=== PATIENT | female | born 1990 ===

== ENCOUNTER 2017-05-06 15:08 | Observation (INO) | payer OTHER ==
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
[2017-05-06] MEDS: Sodium Chloride 0.9% 1,000 ML IV STA ×2 (15:54→17:57)
[2017-05-06 16:11] LABS: BASO # 0.1 K/uL (0.0-0.2); BASO % 0.4 % (0.0-2.0); EOS % 0.1 % (0.0-4.0); HEMOGLOBIN 12.8 g/dL (12.0-16.0); LYMPH # 1.5 K/uL (1.0-4.3); LYMPH % 9.9 % (20.0-40.0); MEAN CELL VOLUME 84.6 fl (81.0-99.0); MEAN CORPUSCULAR HEMOGLOBIN 29.2 pg (27.0-31.0); MEAN CORPUSCULAR HGB CONC 34.5 g/dL (33.0-37.0); MEAN PLATELET VOLUME 7.6 fl (7.2-11.7); MONO # 0.7 K/uL (0.0-0.8); NEUT # 12.6 K/uL (1.8-7.0); NEUT % 84.6 % (50.0-75.0); NRBC % 0.1 % (0.0-0.0); PLATELET COUNT 203 K/uL (130-400); RBC 4.41 Mil/uL (3.80-5.20); RED CELL DISTRIBUTION WIDTH 12.5 % (11.5-14.5); WHITE BLOOD COUNT 14.9 K/uL (4.8-10.8)
[2017-05-06 16:13] LABS: ALBUMIN 3.9 g/dL (3.5-5.0); ALT/SGPT 20 U/L (9-52); AST/SGOT 23 U/L (14-36); BLOOD UREA NITROGEN 5 mg/dl (7-17); GFR AFRICAN-AMERICAN > 60; GFR NON-AFRICAN AMERICAN > 60
[2017-05-06 16:15] LABS: VENOUS BLOOD GAS BASE EXCESS 3.6 mmol/L (0.0-2.0); VENOUS BLOOD GAS PCO2 26 mmHg (40-60); VENOUS BLOOD GAS PO2 34 mm/Hg (30-55); VENOUS BLOOD PH 7.58 (7.32-7.43)
--- NOTE | 2017-05-06 16:18 | RAD ---
HISTORY: fever COMPARISON: No prior. TECHNIQUE: Chest PA and lateral FINDINGS: LUNGS: No active pulmonary disease. PLEURA: No significant pleural effusion identified. No pneumothorax apparent. CARDIOVASCULAR: Normal. OSSEOUS STRUCTURES: No significant abnormalities. VISUALIZED UPPER ABDOMEN: Normal. OTHER FINDINGS: None. IMPRESSION: No active disease.
[2017-05-06] MEDS ORDERED: Potassium Chloride 20 mEq ER Tab PO ONE ×2 (16:25→17:52)
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
[2017-05-06 16:54] LABS: BANDS 2 % (0-2); BASOPHIL 1 % (0-2); LYMPHOCYTE 7 % (20-50); MONOCYTE 4 % (0-10); NEUTROPHIL 81 % (42-75); PLATELET ESTIMATE NORMAL (NORMAL); REACTIVE LYMPHOCYTES 5 % (0-0); TOTAL CELLS COUNTED 100
[2017-05-06 16:55] LABS: HYPOCHROMIC SLIGHT; STOMATOCYTES SLIGHT
[2017-05-06] MEDS ORDERED: cefTRIAXone 2 GM in Sodium Chloride 0.9% 100 ML IVPB STA ×2 (17:16→17:17)
[2017-05-06] MEDS ORDERED: Dexamethasone 10 MG in Sodium Chloride 0.9% 50 ML IVPB STA (17:16)
[2017-05-06] MEDS ORDERED: Vancomycin 2 GM in Sodium Chloride 0.9% 500 ML IVPB STA (17:17)
[2017-05-06] MEDS ORDERED: Dexamethasone 10 MG in Sodium Chloride 0.9% 50 ML IV STA (17:17)
[2017-05-06] MEDS ORDERED: Sodium Chloride 0.9% 1,000 ML IV STA (17:19)
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
[2017-05-06 17:47] LABS: INR 1.1 (0.9-1.2); PROTHROMBIN TIME 12.2 Seconds (9.8-13.1)
[2017-05-06 18:12] LABS: VENOUS BLOOD GAS BASE EXCESS 0.7 mmol/L (0.0-2.0); VENOUS BLOOD GAS PCO2 35 mmHg (40-60); VENOUS BLOOD GAS PO2 63 mm/Hg (30-55); VENOUS BLOOD PH 7.45 (7.32-7.43)
[2017-05-06 18:30] LABS: FLUID TYPE SPINAL FLUID
[2017-05-06 18:32] LABS: CSF VOLUME 2 mL (0-1)
[2017-05-06 18:33] LABS: CSF APPEARANCE CLEAR/COLORLESS (CLEAR)
[2017-05-06 18:41] LABS: CSF MONO/MACROPHAGE 0 % (0-0)
[2017-05-07 05:18] VITALS: RESP 18
[2017-05-07] MEDS ORDERED: Influenza Vaccine 18yr & older 0.5 ML/45 MCG SYR IM ONE (06:00)
[2017-05-07 08:05] LABS: HEMOGLOBIN 12.3 g/dL (12.0-16.0); MEAN CELL VOLUME 85.6 fl (81.0-99.0); MEAN CORPUSCULAR HEMOGLOBIN 29.6 pg (27.0-31.0); MEAN CORPUSCULAR HGB CONC 34.6 g/dL (33.0-37.0); RBC 4.15 Mil/uL (3.80-5.20); RED CELL DISTRIBUTION WIDTH 12.7 % (11.5-14.5); WHITE BLOOD COUNT 10.5 K/uL (4.8-10.8)
[2017-05-07 08:06] LABS: BLOOD UREA NITROGEN 5 mg/dl (7-17); CALCIUM 8.9 mg/dL (8.4-10.2); GFR AFRICAN-AMERICAN > 60; GFR NON-AFRICAN AMERICAN > 60
[2017-05-07] MEDS: Insulin Lispro (humaLOG) 100 Units/ml Inj SC SCH ×2 (08:59→11:47)
[2017-05-07] MEDS: cefTRIAXone 2 GM in Sodium Chloride 0.9% 100 ML IVPB SCH ×2 (11:21→20:00)
[2017-05-07 12:27] LABS: SQUAMOUS EPITHIAL 16 /hpf (0-5); URINE BACTERIA RARE (<OCC); URINE BILIRUBIN NEGATIVE (NEGATIVE); URINE BLOOD NEGATIVE (NEGATIVE); URINE CLARITY CLOUDY (Clear); URINE GLUCOSE (UA) NEG (Normal); URINE LEUKOCYTE ESTERASE SMALL Leu/uL (Negative); URINE PROTEIN 30 mg/dL (NEGATIVE)
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
[2017-05-07 12:35] LABS: URINE COLOR YELLOW (YELLOW)
--- NOTE | 2017-05-07 13:09 | CP.PCM.CON ---
History of Present Illness - History of Present Illness History of Present Illness: 27 year old female presented to the ED with a several day history of moderate to severe headache associated with nausea and vomiting twice daily in the morning and evenings. She is s/p head trauma 3 days ago for which she went to [facility], was discharged with antibiotics for UTI and fioricet. Febrile 102.4, WBC 14K, LA 3.1 , LP results so far negative and fever resolving on IV antibiotics PMSH: denies FH: denies SH: denies tobacco etoh ivdu Meds: denies NKDA Review of Systems - Constitutional Constitutional: As Per HPI - EENT Eyes: absent: As Per HPI, Blind Spots, Blurred Vision, Change in Vision, Decreased Night Vision, Diplopia, Discharge, Dry Eye, Exophthalmos, Floaters, Irritation, Itchy Eyes, Loss of Peripheral Vision, Pain, Photophobia, Requires Corrective Lenses, Sees Flashes, Spots in Vision, Tunnel Vision, Other Visual Disturbances, Loss of Vision, Other Ears: absent: As Per HPI, Decreased Hearing, Ear Discharge, Ear Pain, Tinnitus, Abnormal Hearing, Disequilibrium, Dizziness, Other Nose/Mouth/Throat: absent: As Per HPI, Epistaxis, Nasal Congestion, Nasal Discharge, Nasal Obstruction, Nasal Trauma, Nose Pain, Post Nasal Drip, Sinus Pain, Sinus Pressure, Bleeding Gums, Change in Voice, Dental Pain, Dry Mouth, Dysphagia, Halitosis, Hoarsness, Lip Swelling, Mouth Lesions, Mouth Pain, Odynophagia, Sore Throat, Throat Swelling, Tongue Swelling, Facial Pain, Neck Pain, Neck Mass, Other - Breasts Breasts: absent: As Per HPI, Change in Shape, Mass, Pain, Nipple Discharge, Nipple Inversion, Skin Changes, Swelling, Other - Cardiovascular Cardiovascular: absent: As Per HPI, Acrocyanosis, Chest Pain, Chest Pain at Rest , Chest Pain with Activity, Claudication, Diaphoresis, Dyspnea, Dyspnea on Exertion, Edema, Irregular Heart Rhythm, Pain Radiating to Arm/Neck/Jaw, Leg Edema, Leg Ulcers, Lightheadedness, Orthopnea, Palpitations, Paroxysmal Nocturnal Dyspnea, Pedal Edema, Radiating Pain, Rapid Heart Rate, Slow Heart Rate, Syncope, Other - Respiratory Respiratory: absent: As Per HPI, Cough, Dyspnea, Hemoptysis, Dyspnea on Exertion , Wheezing, Snoring, Stridor, Pain on Inspiration, Chest Congestion, Excessive Mucous Production, Change in Mucous Color, Pain with Coughing, Other - Gastrointestinal Gastrointestinal: absent: As Per HPI, Abdominal Pain, Belching, Bloating, Change in Bowel Habits, Change in Stool Character, Coffee Ground Emesis, Constipation, Cramping, Diarrhea, Dyspepsia, Dysphagia, Early Satiety, Excessive Flatus, Fecal Incontinence, Heartburn, Hematemesis, Hematochezia, Loose Stools, Melena, Nausea, Odynophagia, Temesmus, Vomiting, Other - Genitourinary Genitourinary: absent: As Per HPI, Change in Urinary Stream, Difficulty Urinating, Dysuria, Flank Pain, Hematuria, Pyuria, Nocturia, Urinary Incontinence, Urinary Frequency, Urinary Hesitance, Urinary Urgency, Voiding Freq/Small Amts, Freq UTI, Hx Renal/Bladder Calculi, Hx /Renal Surgery, Bladder Distension, Other - Reproductive: Female Reproductive:Female: absent: As Per HPI, Amenorrhea, Amenorrhea/ Control, Currently Menstual, Cycle <21 Days, Cycle >35 Days, Cycle Variable, Menses 1-7 Days, Menses >/= 8 Days, Menses Variable, Cycle > 4 Weeks Between, No Menses for 6 Months, Heavy Menses, Light Menses, Normal Menses, Spotting Between Cycles , S/P Hysterectomy, Menopausal, Post Menopausal, Premenarche, Abnormal Vaginal Bleeding, Dysmenorrhea, Dyspareunia, Genital Lesions, Genital Pruritis, Pelvic Pain, Prolapse Symptoms, Sexual Dysfunction, Vaginal Discharge, Vaginal Dryness , Vaginal Odor, Vaginal Pruritis, Other - Menstruation Menstruation: absent: As Per HPI, Amenorrhea, Amenorrhea/ Control, Currently Menstual, Cycle <21 Days, Cycle >35 Days, Cycle Variable, Menses 1-7 Days, Menses >/= 8 Days, Menses Variable, Cycle > 4 Weeks Between, No Menses for 6 Months, Heavy Menses, Light Menses, Normal Menses, Spotting Between Cycles , S/P Hysterectomy, Menopausal, Post Menopausal, Premenarche, Abnormal Vaginal Bleeding, Dysmenorrhea, Other - Musculoskeletal Musculoskeletal: absent: As Per HPI, Abnormal Gait, Arthralgias, Atrophy, Back Pain, Deformity, Joint Swelling, Limited Range of Motion, Loss of Height, Muscle Cramps, Muscle Weakness, Myalgias, Neck Pain, Numbness, Radiating Pain into Limb, Stiffness, Tingling, Other - Integumentary Integumentary: absent: As Per HPI, Acne, Alopecia, Bleeding Lesions, Change in Hair, Change in Nails, Change in Pigmentation, Changing Lesions, Dry Skin, Erythema, Furuncle, Hirsutism, Lesions, New Lesions, Non-Healing Lesions, Photosensitivity, Pruritus, Rash, Skin Pain, Skin Ulcer, Sores, Striae, Swelling , Unusual Bruising, Wounds, Jaundice, Other - Neurological Neurological: As Per HPI - Psychiatric Psychiatric: absent: As Per HPI, Abnormal Sleep Pattern, Anhedonia, Anxiety, Auditory Hallucinations, Behavioral Changes, Change in Appetite, Change in Libido, Confusion, Depression, Difficulty Concentrating, Hallucinations, Homicidal Ideation, Hopelessness, Irritability, Memory Loss, Mood Swings, Panic Attacks, Paranoia, Suicidal Ideation, Visual Hallucinations, Tactile Hallucinations, Other - Endocrine Endocrine: absent: As Per HPI, Change in Body Appearance, Change in Libido, Cold Intolorance, Deepening of Voice, Excessive Sweating, Fatigue, Flushing, Heat Intolorance, Increase in Ring/Shoe/Hat Size, Palpitations, Polydipsia, Polyphagia, Polyuria, Other - Hematologic/Lymphatic Hematologic: absent: As Per HPI, Easy Bleeding, Easy Bruising, Lymphadenopathy, Other Past Patient History - Past Medical History & Family History Past Medical History?: No - Past Social History Smoking Status: Never Smoked - HEMATOLOGICAL/ONCOLOGICAL Hx AIDS: No Hx Human Immunodeficiency Virus (HIV): No - MUSCULOSKELETAL/RHEUMATOLOGICAL Hx Falls: No - PSYCHIATRIC Hx Substance Use: No - SURGICAL HISTORY Hx Surgeries: No - ANESTHESIA Hx Anesthesia: No Hx Anesthesia Reactions: No Hx Malignant Hyperthermia: No Meds Allergies/Adverse Reactions: Allergies Allergy/AdvReac Type Severity Reaction Status Date / Time No Known Allergies Allergy Verified 05/06/17 15:15 - Medications Medications: Current Medications Acetaminophen (Tylenol 325mg Tab) 650 mg PO Q4 PRN PRN Reason: Pain, Mild (1-3) Ceftriaxone Sodium 2 gm/ (Sodium Chloride) 100 mls @ 100 mls/hr IVPB Q12 ADELA PRN Reason: Protocol Last Admin: 05/07/17 11:21 Dose: 100 mls/hr Vancomycin HCl 1 gm/ Sodium (Chloride) 250 mls @ 166.667 mls/hr IVPB Q12 ADELA PRN Reason: Protocol Insulin Human Lispro (Humalog) 0 units SC ACHS ADELA PRN Reason: Protocol Last Admin: 05/07/17 11:47 Dose: Not Given Ketorolac Tromethamine (Toradol) 15 mg IVP Q6 PRN PRN Reason: Pain, moderate (4-7) Last Admin: 05/07/17 05:31 Dose: 15 mg Ketorolac Tromethamine (Toradol) 30 mg IVP Q6 PRN PRN Reason: Pain, severe (8-10) Last Admin: 05/07/17 11:34 Dose: 30 mg Physical Exam - Constitutional Appears: Non-toxic, Chronically Ill - Head Exam Head Exam: ATRAUMATIC, NORMAL INSPECTION, NORMOCEPHALIC - Eye Exam Eye Exam: EOMI, PERRL. absent: Scleral icterus - ENT Exam ENT Exam: Mucous Membranes Dry, Normal External Ear Exam, Normal Oropharynx - Neck Exam Neck exam: Negative for: Lymphadenopathy, Thyromegaly - Respiratory Exam Respiratory Exam: Decreased Breath Sounds, Clear to Auscultation Bilateral - Cardiovascular Exam Cardiovascular Exam: REGULAR RHYTHM, +S1, +S2 - GI/Abdominal Exam GI & Abdominal Exam: Diminished Bowel Sounds, Soft. absent: Tenderness - Rectal Exam Rectal Exam: Deferred - Exam Exam: NORMAL INSPECTION - Extremities Exam Extremities exam: Positive for: pedal pulses present. Negative for: calf tenderness, pedal edema, tenderness - Back Exam Back exam: absent: CVA tenderness (L), CVA tenderness (R) - Neurological Exam Neurological exam: Alert, CN II-XII Intact, Oriented x3, Reflexes Normal - Psychiatric Exam Psychiatric exam: Normal Mood - Skin Skin Exam: Dry Results - Vital Signs Recent Vital Signs: Last Vital Signs Temp 97.7 F 05/07/17 12:00 Pulse 63 05/07/17 12:00 Resp 18 05/07/17 12:00 BP 97/62 L 05/07/17 12:00 Pulse Ox 100 05/07/17 12:00 - Labs Result Diagrams: 05/07/17 07:15 05/07/17 07:15 Labs: Laboratory Results - last 24 hr 05/06/17 05/06/17 05/06/17 15:59 15:59 16:08 WBC 14.9 H RBC 4.41 Hgb 12.8 Hct 37.3 MCV 84.6 MCH 29.2 MCHC 34.5 RDW 12.5 Plt Count 203 MPV 7.6 Neut % (Auto) 84.6 H Lymph % (Auto) 9.9 L [place] % (Auto) 5.0 Eos % (Auto) 0.1 Baso % (Auto) 0.4 Neut # (Auto) 12.6 H Lymph # (Auto) 1.5 Aurora # (Auto) 0.7 Eos # (Auto) 0.0 Baso # (Auto) 0.1 Neutrophils % (Manual) 81 H Band Neutrophils % 2 Lymphocytes % (Manual) 7 L Reactive Lymphs % 5 H Monocytes % (Manual) 4 Basophils % (Manual) 1 Platelet Estimate Normal Hypochromasia (manual) Slight Stomatocytes Slight PT INR pO2 34 VBG pH 7.58 H VBG pCO2 26 L VBG HCO3 27.2 VBG Total CO2 25.2 VBG O2 Sat (Calc) 79.9 H VBG Base Excess 3.6 H VBG Potassium Glucose 181 H Lactate 3.1 H FiO2 21.0 Blood Gas Comments Lac 3.1 Crit Value Called To yvonne Guajardo Crit Value Called By 22 Crit Value Read Back Y Blood Gas Notified Time 1614 Sodium 138 192.0 H* Potassium 3.3 L Chloride 103 123.0 H Carbon Dioxide 23 Anion Gap 15 BUN 5 L Creatinine 0.5 L Est GFR ( Amer) > 60 Est GFR (Non-Af Amer) > 60 POC Glucose (mg/dL) Random Glucose 183 H Calcium 9.0 Magnesium Total Bilirubin 0.3 AST 23 ALT 20 Alkaline Phosphatase 83 Total Protein 7.8 Albumin 3.9 Globulin 3.8 Albumin/Globulin Ratio 1.0 Procalcitonin Venous Blood Potassium Urine Color Urine Clarity Urine pH Ur Specific Ola Urine Protein Urine Glucose (UA) Urine Ketones Urine Blood Urine Nitrate Urine Bilirubin Urine Urobilinogen Ur Leukocyte Esterase Urine RBC (Auto) Urine Microscopic WBC Ur Squamous Epith Cells Urine Bacteria Fluid Type CSF Volume CSF Appearance CSF WBC CSF RBC CSF Neutrophils CSF Lymphocytes CSF Monos/Macrophages CSF Glucose CSF Total Protein Influenza Typ A,B (EIA) 05/06/17 05/06/17 05/06/17 17:18 17:18 17:27 WBC RBC Hgb Hct MCV MCH MCHC RDW Plt Count MPV Neut % (Auto) Lymph % (Auto) Aurora % (Auto) Eos % (Auto) Baso % (Auto) Neut # (Auto) Lymph # (Auto) Aurora # (Auto) Eos # (Auto) Baso # (Auto) Neutrophils % (Manual) Band Neutrophils % Lymphocytes % (Manual) Reactive Lymphs % Monocytes % (Manual) Basophils % (Manual) Platelet Estimate Hypochromasia (manual) Stomatocytes PT 12.2 INR 1.1 pO2 VBG pH VBG pCO2 VBG HCO3 VBG Total CO2 VBG O2 Sat (Calc) VBG Base Excess VBG Potassium Glucose Lactate FiO2 Blood Gas Comments Crit Value Called To Crit Value Called By Crit Value Read Back Blood Gas Notified Time Sodium Potassium Chloride Carbon Dioxide Anion Gap BUN Creatinine Est GFR ( Amer) Est GFR (Non-Af Amer) POC Glucose (mg/dL) Random Glucose Calcium Magnesium Total Bilirubin AST ALT Alkaline Phosphatase Total Protein Albumin Globulin Albumin/Globulin Ratio Procalcitonin Venous Blood Potassium Urine Color Urine Clarity Urine pH Ur Specific Ola Urine Protein Urine Glucose (UA) Urine Ketones Urine Blood Urine Nitrate Urine Bilirubin Urine Urobilinogen Ur Leukocyte Esterase Urine RBC (Auto) Urine Microscopic WBC Ur Squamous Epith Cells Urine Bacteria Fluid Type CSF Volume CSF Appearance CSF WBC CSF RBC CSF Neutrophils CSF Lymphocytes CSF Monos/Macrophages CSF Glucose 75 H CSF Total Protein 21.0 Influenza Typ A,B (EIA) 05/06/17 05/06/17 05/06/17 17:38 17:46 17:55 WBC RBC Hgb Hct MCV MCH MCHC RDW Plt Count MPV Neut % (Auto) Lymph % (Auto) Aurora % (Auto) Eos % (Auto) Baso % (Auto) Neut # (Auto) Lymph # (Auto) [place] # (Auto) Eos # (Auto) Baso # (Auto) Neutrophils % (Manual) Band Neutrophils % Lymphocytes % (Manual) Reactive Lymphs % Monocytes % (Manual) Basophils % (Manual) Platelet Estimate Hypochromasia (manual) Stomatocytes PT INR pO2 VBG pH VBG pCO2 VBG HCO3 VBG Total CO2 VBG O2 Sat (Calc) VBG Base Excess VBG Potassium Glucose Lactate FiO2 Blood Gas Comments Crit Value Called To Crit Value Called By Crit Value Read Back Blood Gas Notified Time Sodium Potassium Chloride Carbon Dioxide Anion Gap BUN Creatinine Est GFR ( Amer) Est GFR (Non-Af Amer) POC Glucose (mg/dL) Random Glucose Calcium Magnesium Total Bilirubin AST ALT Alkaline Phosphatase Total Protein Albumin Globulin Albumin/Globulin Ratio Procalcitonin < 0.05 L Venous Blood Potassium Urine Color Urine Clarity Urine pH Ur Specific Ola Urine Protein Urine Glucose (UA) Urine Ketones Urine Blood Urine Nitrate Urine Bilirubin Urine Urobilinogen Ur Leukocyte Esterase Urine RBC (Auto) Urine Microscopic WBC Ur Squamous Epith Cells Urine Bacteria Fluid Type Spinal fluid CSF Volume 2 H CSF Appearance Clear/colorless CSF WBC 2.0 CSF RBC 0.0 CSF Neutrophils 0 CSF Lymphocytes 3.0 H CSF Monos/Macrophages 0 CSF Glucose CSF Total Protein Influenza Typ A,B (EIA) Negative for flu a/b 05/06/17 05/07/17 05/07/17 18:07 05:55 07:15 WBC 10.5 RBC 4.15 Hgb 12.3 Hct 35.6 MCV 85.6 MCH 29.6 MCHC 34.6 RDW 12.7 Plt Count 231 MPV Neut % (Auto) Lymph % (Auto) [place] % (Auto) Eos % (Auto) Baso % (Auto) Neut # (Auto) Lymph # (Auto) [place] # (Auto) Eos # (Auto) Baso # (Auto) Neutrophils % (Manual) Band Neutrophils % Lymphocytes % (Manual) Reactive Lymphs % Monocytes % (Manual) Basophils % (Manual) Platelet Estimate Hypochromasia (manual) Stomatocytes PT INR pO2 63 H VBG pH 7.45 H VBG pCO2 35 L VBG HCO3 25.4 VBG Total CO2 25.4 VBG O2 Sat (Calc) 97.0 H VBG Base Excess 0.7 VBG Potassium 3.3 L Glucose 98 Lactate 0.7 FiO2 21.0 Blood Gas Comments Crit Value Called To Crit Value Called By Crit Value Read Back Blood Gas Notified Time Sodium 138.0 Potassium Chloride 107.0 Carbon Dioxide Anion Gap BUN Creatinine Est GFR ( Amer) Est GFR (Non-Af Amer) POC Glucose (mg/dL) 119 H Random Glucose Calcium Magnesium Total Bilirubin AST ALT Alkaline Phosphatase Total Protein Albumin Globulin Albumin/Globulin Ratio Procalcitonin Venous Blood Potassium 3.3 L Urine Color Urine Clarity Urine pH Ur Specific Ola Urine Protein Urine Glucose (UA) Urine Ketones Urine Blood Urine Nitrate Urine Bilirubin Urine Urobilinogen Ur Leukocyte Esterase Urine RBC (Auto) Urine Microscopic WBC Ur Squamous Epith Cells Urine Bacteria Fluid Type CSF Volume CSF Appearance CSF WBC CSF RBC CSF Neutrophils CSF Lymphocytes CSF Monos/Macrophages CSF Glucose CSF Total Protein Influenza Typ A,B (EIA) 05/07/17 05/07/17 07:15 11:45 WBC RBC Hgb Hct MCV MCH MCHC RDW Plt Count MPV Neut % (Auto) Lymph % (Auto) [place] % (Auto) Eos % (Auto) Baso % (Auto) Neut # (Auto) Lymph # (Auto) [place] # (Auto) Eos # (Auto) Baso # (Auto) Neutrophils % (Manual) Band Neutrophils % Lymphocytes % (Manual) Reactive Lymphs % Monocytes % (Manual) Basophils % (Manual) Platelet Estimate Hypochromasia (manual) Stomatocytes PT INR pO2 VBG pH VBG pCO2 VBG HCO3 VBG Total CO2 VBG O2 Sat (Calc) VBG Base Excess VBG Potassium Glucose Lactate FiO2 Blood Gas Comments Crit Value Called To Crit Value Called By Crit Value Read Back Blood Gas Notified Time Sodium 145 Potassium 3.8 Chloride 111 H Carbon Dioxide 25 Anion Gap 13 BUN 5 L Creatinine 0.4 L Est GFR ( Amer) > 60 Est GFR (Non-Af Amer) > 60 POC Glucose (mg/dL) Random Glucose 119 H Calcium 8.9 Magnesium 2.2 Total Bilirubin AST ALT Alkaline Phosphatase Total Protein Albumin Globulin Albumin/Globulin Ratio Procalcitonin Venous Blood Potassium Urine Color Yellow Urine Clarity Cloudy Urine pH 6.0 Ur Specific Ola 1.031 H Urine Protein 30 Urine Glucose (UA) Neg Urine Ketones 80 Urine Blood Negative Urine Nitrate Negative Urine Bilirubin Negative Urine Urobilinogen 4.0 H Ur Leukocyte Esterase Small Urine RBC (Auto) 17 H Urine Microscopic WBC 35 H Ur Squamous Epith Cells 16 H Urine Bacteria Rare Fluid Type CSF Volume CSF Appearance CSF WBC CSF RBC CSF Neutrophils CSF Lymphocytes CSF Monos/Macrophages CSF Glucose CSF Total Protein Influenza Typ A,B (EIA) Assessment & Plan (1) UTI (urinary tract infection) Status: Acute (2) Fever Status: Acute (3) Headache Status: Acute - Assessment and Plan (Free Text) Assessment: UTI likely cause for fever based on prelim evidence await cultures OK to d/c Vanco after 24 h if CSF culture neg cont Rocephin pending results of urine culture consider Neuro eval- ? post concussion syndrome
[2017-05-07] MEDS ORDERED: Valproate 500 MG in Sodium Chloride 0.9% 100 ML IVPB ONE (13:18)
[2017-05-07] MEDS ORDERED: Dexamethasone 10 MG in Sodium Chloride 0.9% 50 ML IVPB STA (13:18)
[2017-05-07] MEDS ORDERED: Magnesium Sulfate 2 gm/50 ml 2 GM/50 ML BAG IVPB ONE (13:19)
--- NOTE | 2017-05-07 14:13 | CP.PCM.CON ---
History of Present Illness - History of Present Illness History of Present Illness: Ms. Mcgee is a 27-year-old woman with no significant past medical history, who states that 2 days ago, she was walking and a box fell and hit her head. She had blurry vision, did not lose consciousness or fall. She developed a severe headache, mostly on the right side of her head, and neck pain. She had a fever and came to the ED. According to the patient, her cousin, whom she has been in contact with, was recently diagnosed with meningitis and is in [facility]. An LP was done for the patient and she was started on empiric antibiotics. However, the patient's LP was completely normal, and when I saw her, she complained only of a 6/10 headache, and she had NO meningeal signs. She did admit to nausea, vomiting and blurred vision two days ago, but currently she does not have any of those symptoms. Review of Systems - Review of Systems All systems: reviewed and no additional remarkable complaints except Past Patient History - Past Medical History & Family History Past Medical History?: No - Past Social History Smoking Status: Never Smoked - HEMATOLOGICAL/ONCOLOGICAL Hx AIDS: No Hx Human Immunodeficiency Virus (HIV): No - MUSCULOSKELETAL/RHEUMATOLOGICAL Hx Falls: No - PSYCHIATRIC Hx Substance Use: No - SURGICAL HISTORY Hx Surgeries: No - ANESTHESIA Hx Anesthesia: No Hx Anesthesia Reactions: No Hx Malignant Hyperthermia: No Meds Allergies/Adverse Reactions: Allergies Allergy/AdvReac Type Severity Reaction Status Date / Time No Known Allergies Allergy Verified 05/06/17 15:15 - Medications Medications: Current Medications Acetaminophen (Tylenol 325mg Tab) 650 mg PO Q4 PRN PRN Reason: Pain, Mild (1-3) Ceftriaxone Sodium 2 gm/ (Sodium Chloride) 100 mls @ 100 mls/hr IVPB Q12 ADELA PRN Reason: Protocol Last Admin: 05/07/17 11:21 Dose: 100 mls/hr Magnesium Sulfate (Magnesium Sulfate 2 Gm/50 Ml Water) 2 gm in 50 mls @ 50 mls/ hr IVPB ONCE ONE PRN Reason: 2 GM/HR Stop: 05/07/17 14:18 Insulin Human Lispro (Humalog) 0 units SC ACHS ADELA PRN Reason: Protocol Last Admin: 05/07/17 11:47 Dose: Not Given Ketorolac Tromethamine (Toradol) 15 mg IVP Q6 PRN PRN Reason: Pain, moderate (4-7) Last Admin: 05/07/17 05:31 Dose: 15 mg Ketorolac Tromethamine (Toradol) 30 mg IVP Q6 PRN PRN Reason: Pain, severe (8-10) Last Admin: 05/07/17 11:34 Dose: 30 mg Physical Exam - Constitutional Appears: Well - Head Exam Head Exam: ATRAUMATIC, NORMAL INSPECTION, NORMOCEPHALIC - Eye Exam Eye Exam: EOMI, Normal appearance, PERRL - ENT Exam ENT Exam: Mucous Membranes Moist, Normal Exam - Neck Exam Neck exam: Positive for: Normal Inspection - Respiratory Exam Respiratory Exam: Clear to Auscultation Bilateral, NORMAL BREATHING PATTERN - Cardiovascular Exam Cardiovascular Exam: REGULAR RHYTHM - GI/Abdominal Exam GI & Abdominal Exam: Normal Bowel Sounds, Soft. absent: Tenderness - Rectal Exam Rectal Exam: Deferred - Neurological Exam Neurological exam: Alert, CN II-XII Intact, Normal Gait, Oriented x3, Reflexes Normal - Psychiatric Exam Psychiatric exam: Normal Affect, Normal Mood Results - Vital Signs Recent Vital Signs: Last Vital Signs Temp 97.7 F 05/07/17 12:00 Pulse 63 05/07/17 12:00 Resp 18 05/07/17 12:00 BP 97/62 L 05/07/17 12:00 Pulse Ox 100 05/07/17 12:00 - Labs Result Diagrams: 05/07/17 07:15 05/07/17 07:15 Labs: Laboratory Results - last 24 hr 05/06/17 05/06/17 05/06/17 15:59 15:59 16:08 WBC 14.9 H RBC 4.41 Hgb 12.8 Hct 37.3 MCV 84.6 MCH 29.2 MCHC 34.5 RDW 12.5 Plt Count 203 MPV 7.6 Neut % (Auto) 84.6 H Lymph % (Auto) 9.9 L [place] % (Auto) 5.0 Eos % (Auto) 0.1 Baso % (Auto) 0.4 Neut # (Auto) 12.6 H Lymph # (Auto) 1.5 [place] # (Auto) 0.7 Eos # (Auto) 0.0 Baso # (Auto) 0.1 Neutrophils % (Manual) 81 H Band Neutrophils % 2 Lymphocytes % (Manual) 7 L Reactive Lymphs % 5 H Monocytes % (Manual) 4 Basophils % (Manual) 1 Platelet Estimate Normal Hypochromasia (manual) Slight Stomatocytes Slight PT INR pO2 34 VBG pH 7.58 H VBG pCO2 26 L VBG HCO3 27.2 VBG Total CO2 25.2 VBG O2 Sat (Calc) 79.9 H VBG Base Excess 3.6 H VBG Potassium Glucose 181 H Lactate 3.1 H FiO2 21.0 Blood Gas Comments Lac 3.1 Crit Value Called To yvonne Guajardo Crit Value Called By 22 Crit Value Read Back Y Blood Gas Notified Time 1614 Sodium 138 192.0 H* Potassium 3.3 L Chloride 103 123.0 H Carbon Dioxide 23 Anion Gap 15 BUN 5 L Creatinine 0.5 L Est GFR ( Amer) > 60 Est GFR (Non-Af Amer) > 60 POC Glucose (mg/dL) Random Glucose 183 H Calcium 9.0 Magnesium Total Bilirubin 0.3 AST 23 ALT 20 Alkaline Phosphatase 83 Total Protein 7.8 Albumin 3.9 Globulin 3.8 Albumin/Globulin Ratio 1.0 Procalcitonin Venous Blood Potassium Urine Color Urine Clarity Urine pH Ur Specific [place] Urine Protein Urine Glucose (UA) Urine Ketones Urine Blood Urine Nitrate Urine Bilirubin Urine Urobilinogen Ur Leukocyte Esterase Urine RBC (Auto) Urine Microscopic WBC Ur Squamous Epith Cells Urine Bacteria Fluid Type CSF Volume CSF Appearance CSF WBC CSF RBC CSF Neutrophils CSF Lymphocytes CSF Monos/Macrophages CSF Glucose CSF Total Protein Influenza Typ A,B (EIA) 05/06/17 05/06/17 05/06/17 17:18 17:18 17:27 WBC RBC Hgb Hct MCV MCH MCHC RDW Plt Count MPV Neut % (Auto) Lymph % (Auto) [place] % (Auto) Eos % (Auto) Baso % (Auto) Neut # (Auto) Lymph # (Auto) [place] # (Auto) Eos # (Auto) Baso # (Auto) Neutrophils % (Manual) Band Neutrophils % Lymphocytes % (Manual) Reactive Lymphs % Monocytes % (Manual) Basophils % (Manual) Platelet Estimate Hypochromasia (manual) Stomatocytes PT 12.2 INR 1.1 pO2 VBG pH VBG pCO2 VBG HCO3 VBG Total CO2 VBG O2 Sat (Calc) VBG Base Excess VBG Potassium Glucose Lactate FiO2 Blood Gas Comments Crit Value Called To Crit Value Called By Crit Value Read Back Blood Gas Notified Time Sodium Potassium Chloride Carbon Dioxide Anion Gap BUN Creatinine Est GFR ( Amer) Est GFR (Non-Af Amer) POC Glucose (mg/dL) Random Glucose Calcium Magnesium Total Bilirubin AST ALT Alkaline Phosphatase Total Protein Albumin Globulin Albumin/Globulin Ratio Procalcitonin Venous Blood Potassium Urine Color Urine Clarity Urine pH Ur Specific [place] Urine Protein Urine Glucose (UA) Urine Ketones Urine Blood Urine Nitrate Urine Bilirubin Urine Urobilinogen Ur Leukocyte Esterase Urine RBC (Auto) Urine Microscopic WBC Ur Squamous Epith Cells Urine Bacteria Fluid Type CSF Volume CSF Appearance CSF WBC CSF RBC CSF Neutrophils CSF Lymphocytes CSF Monos/Macrophages CSF Glucose 75 H CSF Total Protein 21.0 Influenza Typ A,B (EIA) 05/06/17 05/06/17 05/06/17 17:38 17:46 17:55 WBC RBC Hgb Hct MCV MCH MCHC RDW Plt Count MPV Neut % (Auto) Lymph % (Auto) [place] % (Auto) Eos % (Auto) Baso % (Auto) Neut # (Auto) Lymph # (Auto) [place] # (Auto) Eos # (Auto) Baso # (Auto) Neutrophils % (Manual) Band Neutrophils % Lymphocytes % (Manual) Reactive Lymphs % Monocytes % (Manual) Basophils % (Manual) Platelet Estimate Hypochromasia (manual) Stomatocytes PT INR pO2 VBG pH VBG pCO2 VBG HCO3 VBG Total CO2 VBG O2 Sat (Calc) VBG Base Excess VBG Potassium Glucose Lactate FiO2 Blood Gas Comments Crit Value Called To Crit Value Called By Crit Value Read Back Blood Gas Notified Time Sodium Potassium Chloride Carbon Dioxide Anion Gap BUN Creatinine Est GFR ( Amer) Est GFR (Non-Af Amer) POC Glucose (mg/dL) Random Glucose Calcium Magnesium Total Bilirubin AST ALT Alkaline Phosphatase Total Protein Albumin Globulin Albumin/Globulin Ratio Procalcitonin < 0.05 L Venous Blood Potassium Urine Color Urine Clarity Urine pH Ur Specific [place] Urine Protein Urine Glucose (UA) Urine Ketones Urine Blood Urine Nitrate Urine Bilirubin Urine Urobilinogen Ur Leukocyte Esterase Urine RBC (Auto) Urine Microscopic WBC Ur Squamous Epith Cells Urine Bacteria Fluid Type Spinal fluid CSF Volume 2 H CSF Appearance Clear/colorless CSF WBC 2.0 CSF RBC 0.0 CSF Neutrophils 0 CSF Lymphocytes 3.0 H CSF Monos/Macrophages 0 CSF Glucose CSF Total Protein Influenza Typ A,B (EIA) Negative for flu a/b 05/06/17 05/07/17 05/07/17 18:07 05:55 07:15 WBC 10.5 RBC 4.15 Hgb 12.3 Hct 35.6 MCV 85.6 MCH 29.6 MCHC 34.6 RDW 12.7 Plt Count 231 MPV Neut % (Auto) Lymph % (Auto) [place] % (Auto) Eos % (Auto) Baso % (Auto) Neut # (Auto) Lymph # (Auto) [place] # (Auto) Eos # (Auto) Baso # (Auto) Neutrophils % (Manual) Band Neutrophils % Lymphocytes % (Manual) Reactive Lymphs % Monocytes % (Manual) Basophils % (Manual) Platelet Estimate Hypochromasia (manual) Stomatocytes PT INR pO2 63 H VBG pH 7.45 H VBG pCO2 35 L VBG HCO3 25.4 VBG Total CO2 25.4 VBG O2 Sat (Calc) 97.0 H VBG Base Excess 0.7 VBG Potassium 3.3 L Glucose 98 Lactate 0.7 FiO2 21.0 Blood Gas Comments Crit Value Called To Crit Value Called By Crit Value Read Back Blood Gas Notified Time Sodium 138.0 Potassium Chloride 107.0 Carbon Dioxide Anion Gap BUN Creatinine Est GFR ( Amer) Est GFR (Non-Af Amer) POC Glucose (mg/dL) 119 H Random Glucose Calcium Magnesium Total Bilirubin AST ALT Alkaline Phosphatase Total Protein Albumin Globulin Albumin/Globulin Ratio Procalcitonin Venous Blood Potassium 3.3 L Urine Color Urine Clarity Urine pH Ur Specific [place] Urine Protein Urine Glucose (UA) Urine Ketones Urine Blood Urine Nitrate Urine Bilirubin Urine Urobilinogen Ur Leukocyte Esterase Urine RBC (Auto) Urine Microscopic WBC Ur Squamous Epith Cells Urine Bacteria Fluid Type CSF Volume CSF Appearance CSF WBC CSF RBC CSF Neutrophils CSF Lymphocytes CSF Monos/Macrophages CSF Glucose CSF Total Protein Influenza Typ A,B (EIA) 05/07/17 05/07/17 07:15 11:45 WBC RBC Hgb Hct MCV MCH MCHC RDW Plt Count MPV Neut % (Auto) Lymph % (Auto) [place] % (Auto) Eos % (Auto) Baso % (Auto) Neut # (Auto) Lymph # (Auto) [place] # (Auto) Eos # (Auto) Baso # (Auto) Neutrophils % (Manual) Band Neutrophils % Lymphocytes % (Manual) Reactive Lymphs % Monocytes % (Manual) Basophils % (Manual) Platelet Estimate Hypochromasia (manual) Stomatocytes PT INR pO2 VBG pH VBG pCO2 VBG HCO3 VBG Total CO2 VBG O2 Sat (Calc) VBG Base Excess VBG Potassium Glucose Lactate FiO2 Blood Gas Comments Crit Value Called To Crit Value Called By Crit Value Read Back Blood Gas Notified Time Sodium 145 Potassium 3.8 Chloride 111 H Carbon Dioxide 25 Anion Gap 13 BUN 5 L Creatinine 0.4 L Est GFR ( Amer) > 60 Est GFR (Non-Af Amer) > 60 POC Glucose (mg/dL) Random Glucose 119 H Calcium 8.9 Magnesium 2.2 Total Bilirubin AST ALT Alkaline Phosphatase Total Protein Albumin Globulin Albumin/Globulin Ratio Procalcitonin Venous Blood Potassium Urine Color Yellow Urine Clarity Cloudy Urine pH 6.0 Ur Specific [place] 1.031 H Urine Protein 30 Urine Glucose (UA) Neg Urine Ketones 80 Urine Blood Negative Urine Nitrate Negative Urine Bilirubin Negative Urine Urobilinogen 4.0 H Ur Leukocyte Esterase Small Urine RBC (Auto) 17 H Urine Microscopic WBC 35 H Ur Squamous Epith Cells 16 H Urine Bacteria Rare Fluid Type CSF Volume CSF Appearance CSF WBC CSF RBC CSF Neutrophils CSF Lymphocytes CSF Monos/Macrophages CSF Glucose CSF Total Protein Influenza Typ A,B (EIA) Assessment & Plan (1) Headache Assessment and Plan: The patient is currently afebrile, with no meningeal signs, but has a right temporal headache. This is likely post-concussive. I recommend stopping antibiotics, and treating the headache with Decardon 10 mg IV, Depakote 500 mg IV, and Magnesium Sulfate 2 grams IV ONCE. The patient may follow up with outpatient neurology. No further recommendations at this time. Thank you. Status: Acute Priority: High
[2017-05-08 05:26] VITALS: TEMP 97.9
[2017-05-08 08:07] VITALS: BP 105/68; O2SAT 100
[2017-05-08] MEDS: cefTRIAXone 2 GM in Sodium Chloride 0.9% 100 ML IVPB SCH (08:48)
[2017-05-08 11:04] VITALS: PULSE 85
--- NOTE | 2017-05-08 11:15 | CP.PCM.DIS ---
Provider - Provider Date of Admission: 05/06/17 17:29 Attending physician: Karen Burns DO Primary care physician: None Consults: Dr. Luciano- ID Dr. Carvajal- neurology Time Spent in preparation of Discharge (in minutes): 25 Hospital Course - Lab Results Lab Results: Micro Results 05/06/17 15:50 Blood Blood Culture - Preliminary NO GROWTH AFTER 24 HOURS 05/06/17 17:18 Cerebral Spinal Fluid Gram Stain - Final Most Recent Lab Values WBC 10.5 K/uL (4.8-10.8) 05/07/17 07:15 RBC 4.15 Mil/uL (3.80-5.20) 05/07/17 07:15 Hgb 12.3 g/dL (12.0-16.0) 05/07/17 07:15 Hct 35.6 % (34.0-47.0) 05/07/17 07:15 MCV 85.6 fl (81.0-99.0) 05/07/17 07:15 MCH 29.6 pg (27.0-31.0) 05/07/17 07:15 MCHC 34.6 g/dL (33.0-37.0) 05/07/17 07:15 RDW 12.7 % (11.5-14.5) 05/07/17 07:15 Plt Count 231 K/uL (130-400) 05/07/17 07:15 MPV 7.6 fl (7.2-11.7) 05/06/17 15:59 Neut % (Auto) 84.6 % (50.0-75.0) H 05/06/17 15:59 Lymph % (Auto) 9.9 % (20.0-40.0) L 05/06/17 15:59 [place] % (Auto) 5.0 % (0.0-10.0) 05/06/17 15:59 Eos % (Auto) 0.1 % (0.0-4.0) 05/06/17 15:59 Baso % (Auto) 0.4 % (0.0-2.0) 05/06/17 15:59 Neut # (Auto) 12.6 K/uL (1.8-7.0) H 05/06/17 15:59 Lymph # (Auto) 1.5 K/uL (1.0-4.3) 05/06/17 15:59 [place] # (Auto) 0.7 K/uL (0.0-0.8) 05/06/17 15:59 Eos # (Auto) 0.0 K/uL (0.0-0.7) 05/06/17 15:59 Baso # (Auto) 0.1 K/uL (0.0-0.2) 05/06/17 15:59 Neutrophils % (Manual) 81 % (42-75) H 05/06/17 15:59 Band Neutrophils % 2 % (0-2) 05/06/17 15:59 Lymphocytes % (Manual) 7 % (20-50) L 05/06/17 15:59 Reactive Lymphs % 5 % (0-0) H 05/06/17 15:59 Monocytes % (Manual) 4 % (0-10) 05/06/17 15:59 Basophils % (Manual) 1 % (0-2) 05/06/17 15:59 Platelet Estimate Normal (NORMAL) 05/06/17 15:59 Hypochromasia (manual) Slight 05/06/17 15:59 Stomatocytes Slight 05/06/17 15:59 PT 12.2 Seconds (9.8-13.1) 05/06/17 17:27 INR 1.1 (0.9-1.2) 05/06/17 17:27 pO2 63 mm/Hg (30-55) H 05/06/17 18:07 VBG pH 7.45 (7.32-7.43) H 05/06/17 18:07 VBG pCO2 35 mmHg (40-60) L 05/06/17 18:07 VBG HCO3 25.4 mmol/L 05/06/17 18:07 VBG Total CO2 25.4 mmol/L (22-28) 05/06/17 18:07 VBG O2 Sat (Calc) 97.0 % (40-65) H 05/06/17 18:07 VBG Base Excess 0.7 mmol/L (0.0-2.0) 05/06/17 18:07 VBG Potassium 3.3 mmol/L (3.6-5.2) L 05/06/17 18:07 Sodium 138.0 mmol/L (132-148) 05/06/17 18:07 Chloride 107.0 mmol/L (98-107) 05/06/17 18:07 Glucose 98 mg/dL (65-105) 05/06/17 18:07 Lactate 0.7 mmol/L (0.7-2.1) 05/06/17 18:07 FiO2 21.0 % 05/06/17 18:07 Blood Gas Comments Lac 3.1 05/06/17 16:08 Crit Value Called To yvonne Guajardo 05/06/17 16:08 Crit Value Called By 22 05/06/17 16:08 Crit Value Read Back Y 05/06/17 16:08 Blood Gas Notified Time 1614 05/06/17 16:08 Sodium 145 mmol/l (132-148) 05/07/17 07:15 Potassium 3.8 MMOL/L (3.6-5.0) 05/07/17 07:15 Chloride 111 mmol/L (98-107) H 05/07/17 07:15 Carbon Dioxide 25 mmol/L (22-30) 05/07/17 07:15 Anion Gap 13 (10-20) 05/07/17 07:15 BUN 5 mg/dl (7-17) L 05/07/17 07:15 Creatinine 0.4 mg/dl (0.7-1.2) L 05/07/17 07:15 Est GFR ( Amer) > 60 05/07/17 07:15 Est GFR (Non-Af Amer) > 60 05/07/17 07:15 POC Glucose (mg/dL) 107 mg/dL (65-110) 05/08/17 10:18 Random Glucose 119 mg/dL (65-105) H 05/07/17 07:15 Calcium 8.9 mg/dL (8.4-10.2) 05/07/17 07:15 Magnesium 2.2 MG/DL (1.6-2.3) 05/07/17 07:15 Total Bilirubin 0.3 mg/dl (0.2-1.3) 05/06/17 15:59 AST 23 U/L (14-36) 05/06/17 15:59 ALT 20 U/L (9-52) 05/06/17 15:59 Alkaline Phosphatase 83 U/L (38-126) 05/06/17 15:59 Total Protein 7.8 G/DL (6.3-8.2) 05/06/17 15:59 Albumin 3.9 g/dL (3.5-5.0) 05/06/17 15:59 Globulin 3.8 gm/dL (2.2-3.9) 05/06/17 15:59 Albumin/Globulin Ratio 1.0 (1.0-2.1) 05/06/17 15:59 Procalcitonin < 0.05 NG/ML (0.19-0.49) L 05/06/17 17:55 Venous Blood Potassium 3.3 mmol/L (3.6-5.2) L 05/06/17 18:07 Urine Color Yellow (YELLOW) 05/07/17 11:45 Urine Clarity Cloudy (Clear) 05/07/17 11:45 Urine pH 6.0 (5.0-8.0) 05/07/17 11:45 Ur Specific [place] 1.031 (1.003-1.030) H 05/07/17 11:45 Urine Protein 30 mg/dL (NEGATIVE) 05/07/17 11:45 Urine Glucose (UA) Neg mg/dL (Normal) 05/07/17 11:45 Urine Ketones 80 mg/dL (NEGATIVE) 05/07/17 11:45 Urine Blood Negative (NEGATIVE) 05/07/17 11:45 Urine Nitrate Negative (NEGATIVE) 05/07/17 11:45 Urine Bilirubin Negative (NEGATIVE) 05/07/17 11:45 Urine Urobilinogen 4.0 mg/dL (0.2-1.0) H 05/07/17 11:45 Ur Leukocyte Esterase Small Tam/uL (Negative) 05/07/17 11:45 Urine RBC (Auto) 17 /hpf (0-3) H 05/07/17 11:45 Urine Microscopic WBC 35 /hpf (0-5) H 05/07/17 11:45 Ur Squamous Epith Cells 16 /hpf (0-5) H 05/07/17 11:45 Urine Bacteria Rare (<OCC) 05/07/17 11:45 Fluid Type Spinal fluid 05/06/17 17:46 CSF Volume 2 mL (0-1) H 05/06/17 17:46 CSF Appearance Clear/colorless (CLEAR) 05/06/17 17:46 CSF WBC 2.0 /mm3 (0.0-5.0) 05/06/17 17:46 CSF RBC 0.0 /mm3 (0.0-0.0) 05/06/17 17:46 CSF Neutrophils 0 % (0-0) 05/06/17 17:46 CSF Lymphocytes 3.0 % (0-0) H 05/06/17 17:46 CSF Monos/Macrophages 0 % (0-0) 05/06/17 17:46 CSF Glucose 75 mg/dL (40-70) H 05/06/17 17:18 CSF Total Protein 21.0 mg/dL (12-60) 05/06/17 17:18 Influenza Typ A,B (EIA) Negative for flu a/b (NEGATIVE) 05/06/17 17:38 - Hospital Course Hospital Course: 27 year old female with no past medical history presents to the ED on 05/06/2017 with a several day history of moderate to severe headache associated with nausea and NBNB emesis twice daily in the morning and evenings. She is s/p head trauma 3 days prior to admission for which she went to [facility], was discharged with antibiotics for UTI and fioricet. Febrile 102.4, WBC 14K, LA 3.1 , LP results pending. No meningeal signs on exam. No post traumatic changes on CT scan. Ceftriaxone and Vancomycin initiated in ED. ID consult Dr. Luciano, appreciated and followed. The patient did recieve a lumbar puncture as there was concern for meningitis; however all CSF tests came back normal. Dr. Carvajal was consulted for neurology due to headache; he states that her headache was post concussive in nature and ordered Decadron, Depakote, and magnesium which improved her symptoms. She is to follow up in his office in one week for outpatient neurology. Concerning her fever, this was attributed to UTI as patient failed outpatient therapy with Macrobid. Dr. Luciano followed and recommended Rocephin which was given throughout her stay. Today the patient has been afebrile for approx 24 hours with normalization of her leukocytosis to 10.5. She is being discharged to home in stable condition with headache medication and po antibiotic for UTI. She is to return to the ED for fever or chills or alteration of her mental status or worsening headache which was discussed with her. (1) UTI, presenting with fever initially, now afebrile x 24 hours Status: Acute Pt came with fever of 102.4 and leukocytosis of 14k, leukocytosis now resolved, afebrile x 24 hours LP done: cell count : neg, Glucose and Protein normal, Gram stain : neg empirically started on IV ceftriaxone and Vanco ID consulted, Dr. Luciano- patient recieved Rocephin while in hospital, being discharged with PO Ciprofloxacin 500 mg po q 12 hours x 4 more days (was discharged with Macrobid from [facility]) Blood c/s negative x 24 hours Will follow up with urine culture to ensure that Cipro is sensitive (2) Headache, Meningitis ruled out , probably Concussion Headache Status: Acute Prescribed Tylenol and Fioricet PRN for headache as outpatient Neurology consulted- discussed with dr Carvajal- rec Decadron + Mag Sulate + Depakote IV was given once during admission as per instructions Patient to follow up as outpatient with Dr. Carvajal for headache CT of head : neg Discharge Exam - Additional Findings Additional findings: Physical exam: Constitutional- cooperative, awake, alert Head- NCAT, PERRL Eye- PERRL, EOMI ENT- normal exam, MMM. Neck- normal inspection, supple, no JVD Respiratory- CTAB, no wheezes rales rhonchi Cardiovascular- RRR, +S1, +S2 no MRG GI/Abdominal- normal bowel sounds, soft, no mass, no hsm Skin- warm, dry Extremities Exam- normal capillary refill, normal inspection Neurological Exam- alert, awake, oriented Psych- normal mood, normal affect Discharge Plan - Discharge Medications Prescriptions: Acetaminophen/Butalbital/Caf [Fioricet] 1 tab PO Q4 PRN #30 tab PRN Reason: Migraine Headache Ciprofloxacin HCl [Cipro] 500 mg PO Q12H 4 Days #8 tablet - Follow Up Plan Condition: IMPROVED Disposition: HOME/ ROUTINE Instructions: Concussion in Adults, Urinary Tract Infection in Women (DC), Urinary Tract Infection in Men (DC), Dysuria (GEN) Referrals: Kenroy Carvajal MD [Medical Doctor] -
[2017-05-08 15:05] LABS: SPECIMEN SOURCE CSF
== END 2017-05-08 11:30 | disposition home or self-care (01) ==
LOC: H.ER 15:08 → H.ERHOLD 17:29 → H.TEL 23:53
PROVIDERS: ADMIT Student in an Organized Health Care Education/Training Program; ATTEND Student in an Organized Health Care Education/Training Program
DX: F07.81 Postconcussional syndrome (principal); Z23 Encounter for immunization; N39.0 Urinary tract infection, site not specified; Z87.828 Personal history of other (healed) physical injury and trauma
CPT/HCPCS: 36415; 62272; 70450; 71046; 80048; 80053; 81003; 81025; 82803; 82945; 82948; 83735; 84145; 84157; 85025; 85027; 85610; 87040; 87070; 87086; 87529; 87804; 89050; 90471; 96365; 96366; 96367; 96368; 96375; 96376; 99285; G0378; J0696; J1100; J1885; J7040; Q2035

== ENCOUNTER 2017-05-09 21:28 | Emergency (ER) | payer OTHER ==
[2017-05-09] MEDS ORDERED: Sodium Chloride 0.9% 1,000 ML IV STA (22:56)
--- NOTE | 2017-05-09 23:00 | ED PDOC ---
HPI: Headache Time Seen by Provider: 05/09/17 22:27 Chief Complaint (Nursing): GI Problem Chief Complaint (Provider): headache History Per: Patient, Outreach Clinician ([id number]) History/Exam Limitations: no limitations Onset/Duration Of Symptoms: Days (1) Current Symptoms Are (Timing): Still Present Associated Symptoms: Photophobia, Nausea, Vomiting Additional Complaint(s): 27 y/o female presents for evaluation of headache x 1 day. Headache worsened by lights, loud noises; and associated with nausea and vomiting. Patient states headache began after sustaining head injury on 04/26; states she was admitted over the weekend for same + fever and had a lumbar puncture and was discharged with Cipro, which she thinks was for a "head infection". Patient states she tried taking Advil for the headache but threw up. Denies fever, neck pain, numbness/weakness extremities, chest pain, shortness of breath, palpitations, abdominal pain, urinary symptoms, recent travel, sick contacts. Past Medical History Reviewed: Historical Data, Nursing Documentation, Vital Signs Vital Signs: Last Vital Signs Temp 98.3 F 05/09/17 21:47 Pulse 86 05/09/17 21:47 Resp 18 05/09/17 21:47 BP 109/76 05/09/17 21:47 Pulse Ox 99 05/09/17 21:47 - Medical History PMH: No Chronic Diseases Denies: HIV - Surgical History Surgical History: No Surg Hx - Family History Family History: States: Unknown Family Hx - Home Medications Home Medications: Ambulatory Orders Medication Instructions Recorded Acetaminophen [Tylenol 325mg tab] 650 mg PO Q4 PRN tab 05/08/17 Acetaminophen/Butalbital/Caf 1 tab PO Q4 PRN #30 tab 05/08/17 [Fioricet] Ciprofloxacin HCl [Cipro] 500 mg PO Q12H 4 Days #8 tablet 05/08/17 Acetaminophen/Butalbital/Caf 1 tab PO Q6 PRN #30 tab 05/10/17 [Fioricet] Ondansetron [Zofran] 4 mg PO Q8H PRN #10 tab 05/10/17 Sulfamethoxazole/Trimethoprim 1 tab PO BID #10 tab 05/10/17 [Bactrim DS 800 mg-160 mg] - Allergies Allergies/Adverse Reactions: Allergies Allergy/AdvReac Type Severity Reaction Status Date / Time No Known Allergies Allergy Verified 05/06/17 15:15 Review of Systems ROS Statement: Except As Marked, All Systems Reviewed And Found Negative Gastrointestinal: Positive for: Nausea, Vomiting Neurological: Positive for: Headache Physical Exam - Reviewed Nursing Documentation Reviewed: Yes Vital Signs Reviewed: Yes - Physical Exam Appears: Positive for: Well, Non-toxic, No Acute Distress Head Exam: Positive for: ATRAUMATIC, NORMAL INSPECTION, NORMOCEPHALIC Skin: Positive for: Normal Color Eye Exam: Positive for: Normal appearance, EOMI, PERRL ENT: Positive for: Normal ENT Inspection Cardiovascular/Chest: Positive for: Regular Rate, Rhythm Respiratory: Positive for: Normal Breath Sounds Gastrointestinal/Abdominal: Positive for: Normal Exam Back: Positive for: Normal Inspection Extremity: Positive for: Normal ROM Neurologic/Psych: Positive for: Alert, Oriented - Laboratory Results Result Diagrams: 05/09/17 23:45 05/09/17 23:45 - ECG O2 Sat by Pulse Oximetry: 99 - Progress ED Course And Treament: labs, IV fluids, IV toradol, PO reglan On re-eval, patient states headache resolved. Tolerating PO. Patient states whenever she takes the Cipro she feels "hot inside" Chart reviewed, Cipro and Fioricet were electronically sent to pharmacy; however paper shows that Fioricet rx was "rejected", patient states Cipro was the only medication for her at the pharmacy. Rx fioricet provided. Cipro changed to Bactrim DS. Advised follow up PMD/neurology. Return precautions given. Disposition - Clinical Impression Clinical Impression: Headache, UTI (urinary tract infection) - Patient ED Disposition Is Patient to be Admitted: No Counseled Patient/Family Regarding: Studies Performed, Diagnosis, Need For Followup, Rx Given - Disposition Referrals: [facility] [Outside] Disposition: Routine/Home Disposition Time: 02:49 Condition: IMPROVED Prescriptions: Acetaminophen/Butalbital/Caf [Fioricet] 1 tab PO Q6 PRN #30 tab PRN Reason: Headache Ondansetron [Zofran] 4 mg PO Q8H PRN #10 tab PRN Reason: Nausea/Vomiting Sulfamethoxazole/Trimethoprim [Bactrim DS 800 mg-160 mg] 1 tab PO BID #10 tab Instructions: Urinary Tract Infections in Adults, Headache, Adult, Postconcussion Syndrome Forms: [employer] (Lao) Print Language: NIUEAN
[2017-05-09 23:28] LABS: SQUAMOUS EPITHIAL 34 /hpf (0-5); URINE BACTERIA RARE (<OCC); URINE BILIRUBIN NEGATIVE (NEGATIVE); URINE BLOOD SMALL (NEGATIVE); URINE CLARITY CLOUDY (Clear); URINE COLOR YELLOW (YELLOW); URINE GLUCOSE (UA) NEG (Normal); URINE LEUKOCYTE ESTERASE MOD Leu/uL (Negative); URINE PROTEIN NEGATIVE (NEGATIVE); URINE UROBILINOGEN 0.2-1.0 mg/dL (0.2-1.0)
[2017-05-10 00:05] LABS: HEMOGLOBIN 14.2 g/dL (12.0-16.0); MEAN CELL VOLUME 85.6 fl (81.0-99.0); MEAN CORPUSCULAR HEMOGLOBIN 28.7 pg (27.0-31.0); MEAN CORPUSCULAR HGB CONC 33.6 g/dL (33.0-37.0); RBC 4.95 Mil/uL (3.80-5.20); WHITE BLOOD COUNT 13.4 K/uL (4.8-10.8)
[2017-05-10 00:06] LABS: BASO % 0.4 % (0.0-2.0); EOS % 0.3 % (0.0-4.0); LYMPH # 2.7 K/uL (1.0-4.3); LYMPH % 19.9 % (20.0-40.0); MEAN PLATELET VOLUME 7.5 fl (7.2-11.7); MONO # 0.8 K/uL (0.0-0.8); NEUT # 9.8 K/uL (1.8-7.0); NEUT % 73.4 % (50.0-75.0); NRBC % 0.1 % (0.0-0.0); RED CELL DISTRIBUTION WIDTH 12.7 % (11.5-14.5)
[2017-05-10 00:19] LABS: ALBUMIN 4.2 g/dL (3.5-5.0); ALT/SGPT 64 U/L (9-52); AST/SGOT 30 U/L (14-36); BLOOD UREA NITROGEN 13 mg/dl (7-17); CALCIUM 9.7 mg/dL (8.4-10.2); GFR AFRICAN-AMERICAN > 60; GFR NON-AFRICAN AMERICAN > 60
[2017-05-10 02:18] VITALS: BP 106/66; PULSE 80; RESP 16
[2017-05-10 02:34] VITALS: TEMP 97.7
[2017-05-10 02:50] VITALS: O2SAT 99
== END 2017-05-10 03:10 | disposition home or self-care (01) ==
LOC: H.ER 21:28
DX: R51 Headache (principal); N39.0 Urinary tract infection, site not specified
CPT/HCPCS: 80053; 81003; 81025; 85025; 87086; 99285; J1885; J7040